=== PATIENT | male | born 1985 | race Caucasian/White ===

== ENCOUNTER → 2019-08-13 08:30 | Outpatient (BNVA) | payer SELFPAY | PROVIDERS: Family Provider Nurse Practitioner; PCP Nurse Practitioner; Visit Provider Nurse Practitioner | DX: I10 Essential (primary) hypertension (principal); F41.9 Anxiety disorder, unspecified; E66.3 Overweight | CPT/HCPCS: 80053; 80061; 81000 ==

== ENCOUNTER 2019-11-04 21:50 | Emergency (ER) | payer SELFPAY ==
--- NOTE | 2019-11-04 21:51 | CTR_ITS ---
PROCEDURE INFORMATION: Exam: CT Abdomen And Pelvis With Contrast Exam date and time: 11/04/2019 10:19 PM Age: 34 years old Clinical indication: Nausea and vomiting; Abdominal pain; Localized; Right lower quadrant (rlq); Additional info: Abd pain TECHNIQUE: Imaging protocol: Computed tomography of the abdomen and pelvis with intravenous contrast. Radiation optimization: All CT scans at this facility use at least one of these dose optimization techniques: automated exposure control; mA and/or kV adjustment per patient size (includes targeted exams where dose is matched to clinical indication); or iterative reconstruction. Contrast material: OMNI 300; Contrast volume: 95 ml; Contrast route: INTRAVENOUS (IV); COMPARISON: No relevant prior studies available. RADIATION DOSE METRICS: Total DLP (mGy-cm): 1693.42 FINDINGS: Lungs: The lung bases are clear. Mediastinal space: Possible very small hiatal hernia. There may be some mucosal/wall thickening involving the lower esophagus. This is nonspecific, but could represent evidence for esophagitis. Please correlate clinically. Liver: Unremarkable. Gallbladder and bile ducts: No definite gallbladder abnormality by CT. No biliary tree dilation. Pancreas: Unremarkable. Spleen: Unremarkable. Adrenals: Unremarkable. Kidneys and ureters: No hydronephrosis of either kidney. No visible ureteral calculus. A couple of very small, less than 5 mm likely benign cysts in each kidney. These are too small to accurately characterize by CT. Stomach and bowel: The stomach appears somewhat distended at the time of scanning. Possibility of slightly thickened mucosa/wall in the distal antrum of the stomach and proximal duodenum. This is a nonspecific appearance, and could be transient on CT, but could also represent evidence for gastritis/duodenitis or peptic ulcer disease. Please correlate clinically. There are no CT findings to strongly suggest diverticulitis. Appendix: The appendix is visualized and appears normal. Intraperitoneal space: No free air, ascites, or bowel distention. Vasculature: No evidence for abdominal aortic aneurysm. Lymph nodes: No retroperitoneal adenopathy. Bladder: Unremarkable as visualized. Reproductive: Essentially unremarkable for age. Bones/joints: No significant acute finding. Soft tissues: No significant acute finding. CT/CT abdomen pelvis w con* [id number] IMPRESSION: 1. Normal appendix. 2. Somewhat distended stomach. Possible thickened mucosa/wall in the distal stomach and proximal duodenum, see above discussion. 3. No free air or bowel distention. No evidence for bowel obstruction. 4. Possible very small hiatal hernia. Possibly some thickening of the lower esophagus, see above discussion. 5. Other findings discussed above. COMMENTS: Consistent with the [employer]'s Incidental Findings Committee white paper (J Am Samantha Radiol 2018): Any incidental renal lesion less than 1.0 cm or classified as too small to characterize, or any incidental cystic renal lesion characterized as simple-appearing, is likely benign. No follow-up imaging is recommended for these lesions per consensus recommendations based on imaging criteria. Radiation Dose CTDIVOL = (mGy): DLP = 1693.42 (mGy-cm)
[2019-11-04 21:52] VITALS: BP 160/102; PULSE 64; RESP 16; TEMP 36.5; O2SAT 96; BMI 28.5
--- NOTE | 2019-11-04 21:59 | ED_ITS ---
HPI - Abdominal Pain General: Chief Complaint: Abdominal Pain Stated Complaint: LOWER ABD PAIN Time Seen by Provider: 11/04/19 21:51 Source: patient and EMS Mode of arrival: EMS Limitations: no limitations History of Present Illness: HPI narrative: 34-year-old male states has been having right lower quadrant pain for last 5 to 6 hours. States pain is sharp in nature is worse with movement. He denies any vomiting or diarrhea. He denies any history of kidney stone. He states that the pain is worse with palpation improved with rest. MD elicited complaint: abdominal pain Onset (ago): hour(s) Location: RLQ Severity: severe Quality: stabbing Radiation: none Exacerbating factors: nothing Relieving factors: nothing Associated Symptoms: Denies chills, dysuria and fever(s) Review of Systems Const: Denies: fever(s), chills, body aches or change in appetite Eyes: Denies: blurry vision or eye discomfort ENMT: Denies: throat pain or dental pain Card: Denies: chest pain Resp: Denies: dyspnea GI: Reports: abdominal pain : Denies: dysuria Musc: Denies: neck pain or back pain Skin/Breast: Denies: rash Neuro: Denies: headache(s) Psych: Denies: depression Jimmy/Lymph: Denies: easy bruising All/Imm: Denies: urticaria PFSH ED PFSH: Medical History Anxiety Essential hypertension Surgical History History of arthroscopy of left knee Family History Other Hypertension Stroke Social History Smoking and tobacco status: former smoker Second hand smoke exposure: No Smoking risk assessment/counseling performed?: No Alcohol intake: never Desire information about alcohol rehabilitation?: No Counseling given: No Desire information about substance/drug rehabilitation?: No Counseling given: No Caregiver/support person: No Lives independently: Yes Household members: significant other Housing: House Marital status: Single Number of children: 2 service: No Current occupational status: employed 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 History of recent travel: Yes (road oiling truck driver out of state drives) Out of state: Yes Out of country: No Current gender identity: Male Physical Exam Const: COMMON NORMALS: no acute distress, patient oriented x3 and healthy appearing HENMT: COMMON NORMALS: normocephalic and atraumatic HEAD & SCALP: normocephalic and atraumatic Eye: COMMON NORMALS: Equal, round and reactive pupils present and EOMs intact bilaterally PUPIL: Yes Equal, round and reactive pupils present Neck/C-Spine: COMMON NORMALS: full ROM and supple Chest: COMMONS NORMALS: normal inspection of the chest and normal palpation of entire chest wall Resp: COMMON NORMALS: normal respiratory effort, No retractions, No use of accessory muscles and clear to auscultation bilaterally AUSCULTATION: clear to auscultation bilaterally Cardio: COMMON NORMALS: regular rate, regular rhythm and No murmurs present (Cardio) RATE: regular rate RHYTHM: regular rhythm GI: COMMON NORMALS: Normal to inspection, nondistended, normoactive bowel jayashree nds present, Soft to palpation and no masses PALPATION: Yes Soft to palpation and Yes Tenderness to palpation present (GI) Details: RLQ Extremity: COMMON NORMALS: normal to inspection and full ROM Neuro: COMMON NORMALS: patient oriented x3, moves all extremities and no focal motor deficits Psych: COMMON NORMALS: mental status grossly normal, Normal thought process present and cooperative THOUGHT PROCESS: Normal thought process present Skin: COMMON NORMALS: no rashes or lesions noted and no wounds GENERAL SKIN EXAM: no rashes or lesions noted Course Vital Signs: Vital signs: Vital Signs Temperature 97.7 F 11/04/19 21:52 Pulse Rate 78 11/04/19 23:32 Respiratory Rate 18 11/04/19 23:32 Blood Pressure 147/90 11/04/19 23:32 Pulse Oximetry 98 11/04/19 23:32 MDM - Abdominal Pain MDM Narrative: Medical decision making narrative: Rc presents here with abdominal pain likely gastritis. Patient could have peptic ulcer disease as well. He feels improved here and I will start him on Protonix and have him follow-up with surgery. Patient is to take his Protonix daily. I did give him diet modifications as well. Patient is to return if worsening. Lab Data: Labs: Lab Results 11/04/19 11/04/19 Range/Units 22:45 22:45 WBC 10.5 H (4.0-10.0) 10^3/ uL RBC 4.89 (4.1-5.3) 10^6/u L Hgb 13.9 (11.7-16.6) g/dL Hct 43.4 (42.0-52.0) % MCV 88.8 (80-94) fL MCH 28.4 (28.0-34.0) pg MCHC 32.0 (30.0-36.0) g/dL RDW 12.5 (12.1-15.1) % Plt Count 271 (130-400) 10^3/c mm MPV 10.4 (7.4-10.4) fL Neut % (Auto) 69.0 % Lymph % (Auto) 23.0 % [place] % (Auto) 5.4 % Eos % (Auto) 1.8 % Baso % (Auto) 0.5 % Neut # (Auto) 7.23 (1.8-7.7) 10^3/u L Lymph # (Auto) 2.4 (0.8-4.8) 10^3/u L [place] # (Auto) 0.6 (0.2-0.9) 10^3/u L Eos # (Auto) 0.2 (0.0-0.8) 10^3/u L Baso # (Auto) 0.1 (0.0-0.1) 10^3/u L Nucleated RBC % (a uto) 0 % Nucleated RBCs # 0.0 /100WBC Sodium 142 (136-145) mmol/L Potassium 4.3 (3.5-5.1) mmol/L Chloride 106 (98-107) mmol/L Carbon Dioxide 27 (22-29) mmol/L Anion Gap 13.3 (5-19) BUN 17 (6-20) mg/dL Creatinine 1.0 (0.7-1.2) mg/dL GFR Calculation 85.5 L (90-130) mL/min Glucose 112 (65-115) mg/dL Calculated Osmolal ity 291 (285-295) mOsm/k g Calcium 8.9 (8.5-10.5) mg/dL Total Bilirubin 0.2 (0.15-1.2) mg/dL AST 30 (0-40) U/L ALT 43 H (0-41) U/L Alkaline Phosphata se 70 (40-130) IU/L Total Protein 6.7 (6.6-8.7) g/dL Albumin 4.2 (3.5-5.2) g/dL Globulin 2.5 (1.3-4.6) g/dL Lipase 27 (13-60) U/L Imaging Data ^: CT Abd/Pel: Radiologist's impression: [address] [address] [address] Scan Report Signed Patient: Rc Tyson Unit #: [id number] : 1985 Age/Sex: 34 / M ADM Date: 11/04/19 Loc: ER Room/Bed: Attending Dr: Ordering Provider/Ordering MD: Liyah Ford MD Date of Service: 11/04/19 Procedure(s): CT abdomen pelvis w con* [id number] Accession Number(s): [id number] Report Number: [id number] PROCEDURE INFORMATION: Exam: CT Abdomen And Pelvis With Contrast Exam date and time: 11/04/2019 10:19 PM Age: 34 years old Clinical indication: Nausea and vomiting; Abdominal pain; Localized; Right lower quadrant (rlq); Additional info: Abd pain TECHNIQUE: Imaging protocol: Computed tomography of the abdomen and pelvis with intravenous contrast. Radiation optimization: All CT scans at this facility use at least one of these dose optimization techniques: automated exposure control; mA and/or kV adjustment per patient size (includes targeted exams where dose is matched to clinical indication); or iterative reconstruction. Contrast material: OMNI 300; Contrast volume: 95 ml; Contrast route: INTRAVENOUS (IV); COMPARISON: No relevant prior studies available. RADIATION DOSE METRICS: Total DLP (mGy-cm): 1693.42 FINDINGS: Lungs: The lung bases are clear. Mediastinal space: Possible very small hiatal hernia. There may be some mucosal/wall thickening involving the lower esophagus. This is nonspecific, but could represent evidence for esophagitis. Please correlate clinically. Liver: Unremarkable. Gallbladder and bile ducts: No definite gallbladder abnormality by CT. No biliary tree dilation. Pancreas: Unremarkable. Spleen: Unremarkable. Adrenals: Unremarkable. Kidneys and ureters: No hydronephrosis of either kidney. No visible ureteral calculus. A couple of very small, less than 5 mm likely benign cysts in each kidney. These are too small to accurately characterize by CT. Stomach and bowel: The stomach appears somewhat distended at the time of scanning. Possibility of slightly thickened mucosa/wall in the distal antrum of the stomach and proximal duodenum. This is a nonspecific appearance, and could be transient on CT, but could also represent evidence for gastritis/duodenitis or peptic ulcer disease. Please correlate clinically. There are no CT findings to strongly suggest diverticulitis. Appendix: The appendix is visualized and appears normal. Intraperitoneal space: No free air, ascites, or bowel distention. Vasculature: No evidence for abdominal aortic aneurysm. Lymph nodes: No retroperitoneal adenopathy. Bladder: Unremarkable as visualized. Reproductive: Essentially unremarkable for age. Bones/joints: No significant acute finding. Soft tissues: No significant acute finding. CT/CT abdomen pelvis w con* [id number] IMPRESSION: 1. Normal appendix. 2. Somewhat distended stomach. Possible thickened mucosa/wall in the distal stomach and proximal duodenum, see above discussion. 3. No free air or bowel distention. No evidence for bowel obstruction. 4. Possible very small hiatal hernia. Possibly some thickening of the lower esophagus, see above discussion. 5. Other findings discussed above. Discharge Plan Discharge Patient Disposition: Home Clinical Impression: Abdominal pain Qualifiers: Abdominal location: generalized Qualified Code(s): R10.84 - Generalized abdominal pain Condition: Stable Prescriptions: New Protonix 40 mg tablet,delayed release (DR/EC) 40 mg PO DAILY Qty: 60 RF: 1 No Action atenolol 25 mg tablet 25 mg PO BID Qty: 180 RF: 1 citalopram 20 mg tablet 20 mg PO DAILY Qty: 90 RF: 1 Discharge Orders: Discharge Order (Routine); Ordered 11/05/19 Ordered By: Liyah Ford Referrals: Rodney Liu MD [Physician] - 4-7 days Nunu Arredondo FNP-C [Primary Care Provider] - 1-3 days Discharge Diet: Advance as tolerated Discharge Activity: Resume usual activity Patient Instructions: Abdominal Pain (ED) Coding Level of Care Code ED Insurance Attorney for Chg Fwd Exam Comprehensive
[2019-11-04 22:27] VITALS: RESP 20; O2SAT 96
[2019-11-04] MEDS: morphine 4 mg/mL SDV 1 mL IVP (22:27)
[2019-11-04] MEDS: ondansetron 2 mg/ML SDV 2 mL 4 MG IVP (22:27)
[2019-11-04 22:32] VITALS: BP 145/87; PULSE 68; RESP 20; O2SAT 98
[2019-11-04] MEDS: iohexol 300 mg/mL 100 mL Btl IV (22:58)
[2019-11-04 23:00] LABS: Basophils # 0.1 10^3/uL (0.0-0.1); Basophils % 0.5 %; Eosinophils # 0.2 10^3/uL (0.0-0.8); Eosinophils % 1.8 %; Hematocrit 43.4 % (42.0-52.0); Hemoglobin 13.9 g/dL (11.7-16.6); Lymphocytes # 2.4 10^3/uL (0.8-4.8); Mean Corpuscular Hemoglobin 28.4 pg (28.0-34.0); Mean Corpuscular Volume 88.8 fL (80-94); Mean Platelet Volume 10.4 fL (7.4-10.4); Monocytes # 0.6 10^3/uL (0.2-0.9); Monocytes % 5.4 %; Neutrophils # 7.23 10^3/uL (1.8-7.7); Nucleated Red Blood Cells % 0 %; Platelet Count 271 10^3/cmm (130-400); Red Blood Count 4.89 10^6/uL (4.1-5.3); Red Cell Distribution Width 12.5 % (12.1-15.1); White Blood Count 10.5 10^3/uL (4.0-10.0)
[2019-11-04 23:32] VITALS: BP 147/90; PULSE 78; RESP 18; O2SAT 98
[2019-11-04] MEDS: lidocaine 2% viscous 15 ML, aluminum-mag hydrox-simethicon 30 ML, sucralfate oral liq 1 GM PO (23:47)
[2019-11-04 23:49] LABS: Alanine Aminotransferase 43 U/L (0-41); Albumin Level 4.2 g/dL (3.5-5.2); Alkaline Phosphatase 70 IU/L (40-130); Anion Gap 13.3 (5-19); Aspartate Amino Transferase 30 U/L (0-40); Blood Urea Nitrogen 17 mg/dL (6-20); Calcium 8.9 mg/dL (8.5-10.5); Carbon Dioxide 27 mmol/L (22-29); Chloride 106 mmol/L (98-107); Globulin 2.5 g/dL (1.3-4.6); Glomerular Filtration Rate 85.5 mL/min (90-130); Glucose 112 mg/dL (65-115); Lipase 27 U/L (13-60); Osmolality Calculated 291 mOsm/kg (285-295); Potassium 4.3 mmol/L (3.5-5.1); Sodium 142 mmol/L (136-145); Total Bilirubin 0.2 mg/dL (0.15-1.2); Total Protein 6.7 g/dL (6.6-8.7)
[2019-11-05] VITALS: BP 137/87; PULSE 68; RESP 18; O2SAT 95
[2019-11-05 00:28] VITALS: BP 137/87; PULSE 72; RESP 18; O2SAT 96
--- NOTE | 2019-11-10 09:22 | DCPLANNER ---
Addendum entered by Earlene Gutiérrez 11/10/19 12:49: Patient does not want to follow up with Dr. Liu, patient wants to follow up with Dr. Paulson. Patient has a follow up appointment scheduled for Sunday, November 17, 2019 at 1:[address] [facility] at [facility]. Clinic will call patient with appointment information. Original Note: wind energy project manager had message to schedule a follow up appointment for patient with Dr. Liu. wind energy project manager called the office of Dr. Liu, spoke with Shayy, faxed patients information to clinic. A follow up appointment was scheduled for Sunday, December 01, 2019 at 10:30. Clinic will call patient with appointment information.
--- NOTE | 2019-12-03 08:09 | DCPLANNER ---
Patient had a follow up appointment scheduled for 11.17.19 with [facility] - patient did attend the appointment.
== END 2019-11-05 00:30 | disposition home or self-care (01) ==
PROVIDERS: Emergency Provider Emergency Medicine; PCP Nurse Practitioner
DX: R10.84 Generalized abdominal pain (principal); I10 Essential (primary) hypertension; Z87.891 Personal history of nicotine dependence
CPT/HCPCS: 12345; 74177; 80053; 83690; 85025; 96374; 96375; 99282; 99283; J2270; J2405; Q9967

== ENCOUNTER 2019-11-30 09:27 | Outpatient (CLI) | payer SELFPAY ==
--- NOTE | 2019-11-30 10:00 | NM_ITS ---
WS: [id number] NUCLEAR MEDICINE HIDA SCAN CLINICAL INFORMATION: abdominal pain TECHNIQUE: Following intravenous administration of 8.0 mCi of technetium 99m mebrofenin, images of th e abdomen were obtained over the course of 60 minutes. Next, gallbladder ejection fraction was determ ined by obtaining preprandial and one-hour postprandial images of the gallbladder following oral meg stion of Ensure. COMPARISON: None. FINDINGS: Normal hepatic uptake at 5 minutes. Gallbladder is visualized by 10 minutes. No evidence of acute cho lecystitis. Small bowel and common bile duct are visualized. No evidence of choledocholithiasis. Gallbladder ejection fraction 48% within normal limits. No evidence of chronic cholecystitis. NM/NM hepatobiliary w phar* [id number] IMPRESSION: 1. No evidence of acute or chronic cholecystitis. 2. Gallbladder ejection fraction 48% within normal limits.
== END 2019-11-30 09:28 | disposition home or self-care (01) ==
LOC: NM 09:29
PROVIDERS: PCP Nurse Practitioner; Visit Provider Surgery
DX: R10.9 Unspecified abdominal pain (principal)
CPT/HCPCS: 78227; A9537

== ENCOUNTER → 2019-12-22 11:29 | Outpatient (BNVA) | payer SELFPAY | PROVIDERS: PCP Nurse Practitioner; Visit Provider Nurse Practitioner | DX: Z11.59 Encounter for screening for other viral diseases (principal) | CPT/HCPCS: 87635 ==

== ENCOUNTER 2020-05-01 19:16 | Emergency (ER) | payer OTHER, SELFPAY ==
[2020-05-01 19:21] VITALS: BP 149/92; PULSE 89; RESP 18; TEMP 36.3; O2SAT 97; BMI 30.3
--- NOTE | 2020-05-01 19:36 | ECG_ITS ---
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 [email or web address]
--- NOTE | 2020-05-01 19:36 | XR_ITS ---
WS: [id number] Exam: XR chest 1V portable [id number] Date/Time of Exam: 05/01/2020 7:36 PM Reason For Exam: chest pain The lungs are clear and fully expanded. Normal cardiomediastinal structures. Bony structures are inta ct. There may be a left-sided cervical rib at C7. XR/XR chest 1V portable [id number] IMPRESSION: 1. No acute cardiopulmonary process noted. 2. There may be a cervical rib at C7 on the left.
[2020-05-01 19:37] VITALS: BP 136/89; PULSE 89; RESP 19; O2SAT 96
[2020-05-01 19:41] LABS: Basophils # 0.1 10^3/uL (0.0-0.1); Basophils % 0.6 %; Eosinophils # 0.2 10^3/uL (0.0-0.8); Eosinophils % 1.6 %; Hematocrit 45.3 % (42.0-52.0); Hemoglobin 14.8 g/dL (11.7-16.6); Lymphocytes # 3.3 10^3/uL (0.8-4.8); Lymphocytes % 32.3 %; Mean Corpuscular HGB Conc 32.7 g/dL (30.0-36.0); Mean Corpuscular Hemoglobin 28.7 pg (28.0-34.0); Mean Corpuscular Volume 87.8 fL (80-94); Mean Platelet Volume 10.3 fL (7.4-10.4); Monocytes # 0.7 10^3/uL (0.2-0.9); Monocytes % 6.9 %; Neutrophils # 5.94 10^3/uL (1.8-7.7); Neutrophils % 58.4 %; Nucleated Red Blood Cells % 0 %; Platelet Count 313 10^3/cmm (130-400); Red Blood Count 5.16 10^6/uL (4.1-5.3); Red Cell Distribution Width 13.4 % (12.1-15.1); White Blood Count 10.2 10^3/uL (4.0-10.0)
--- NOTE | 2020-05-01 19:44 | ED_ITS ---
HPI - Chest Pain General: Chief Complaint: Shortness of Breath/Dyspnea Stated Complaint: SOB Time Seen by Provider: 05/01/20 19:22 History of Present Illness: HPI narrative: The patient is a 34-year-old male with past medical history anxiety who comes to the ER complaining of approximately 1 hour of chest pain and shortness of breath. Onset: during rest and during exertion Pain location: substernal Pain radiation: none Quality: sharp Relieving factors: nothing Exacerbating factors: nothing Associated symptoms: Reports no associated symptoms and dyspnea; Deny abdominal pain or palpitations Review of Systems General: Reports: 10 or more systems reviewed and unremarkable except in HPI and below Const: Denies: fatigue Eyes: Denies: change in vision, blurry vision or eye redness ENMT: Denies: throat pain, swelling of lips/tongue, ear or mastoid pain or nasal congestion Card: Reports: chest pain; Denies: palpitations, irregular heart rhythm, edema, dyspnea on exertion or orthopnea Resp: Reports: dyspnea; Denies: productive cough or non-productive cough GI: Denies: abdominal pain, diarrhea or GI cramping : Denies: flank pain, urinary frequency or urinary urgency Musc: Denies: neck pain, back pain, extremity pain, joint pain, joint redness, limited range of motion or muscle weakness Skin/Breast: Denies: rash, pruritus, erythema, skin pain or skin tenderness Neuro: Denies: headache(s), numbness in extremities, weakness in extremities, sensory changes, difficulty walking, dizziness, confusion or Slurred speech present Psych: Denies: anxiety or depression Endo: Denies: polyuria All/Imm: Denies: urticaria, throat swelling or tongue swelling PFSH ED PFSH: Medical History (Updated 05/01/20 @ 23:38 by Reinier Nuñez MD) Anxiety Essential hypertension Surgical History History of arthroscopy of left knee Family History Other Hypertension Stroke Social History Smoking and tobacco status: former smoker Second hand smoke exposure: No Smoking risk assessment/counseling performed?: No Alcohol intake: never Desire information about alcohol rehabilitation?: No Counseling given: No Desire information about substance/drug rehabilitation?: No Counseling given: No Caregiver/support person: No Lives independently: Yes Household members: significant other Housing: House Marital status: Single Number of children: 2 service: No Current occupational status: employed 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 History of recent travel: Yes (mechanic industrial truck out of state drives) Out of state: Yes Out of country: No Current gender identity: Male Physical Exam Const: COMMON NORMALS: no acute distress, average body habitus, patient oriented x3, no limitations, healthy appearing, alert and well nourished GENERAL APPEARANCE: cooperative, comfortable, well kempt and well developed ORIENTATION/CONSCIOUSNESS: Yes awake, Yes oriented to person, Yes oriented to place and Yes oriented to time HENMT: COMMON NORMALS: normocephalic, external ears normal and Normal external nose present HEAD & SCALP: normal to inspection and normocephalic NOSE: Normal external nose present EXTERNAL EAR: Yes external ears normal MOUTH: Normal oral and palatal mucosa present THROAT: posterior oropharynx normal Eye: COMMON NORMALS: Equal, round and reactive pupils present and EOMs intact bilaterally GENERAL EYE: appearance normal, both eyes and all related structures PUPIL: Yes Equal, round and reactive pupils present Neck/C-Spine: COMMON NORMALS: full ROM, no lymphadenopathy, no meningeal signs and no JVD GENERAL: Yes normal visual inspection Lymph: LYMPHATIC: no lymphadenopathy noted Chest: COMMONS NORMALS: normal inspection of the chest and normal palpation of entire chest wall Resp: COMMON NORMALS: normal respiratory effort, No retractions, No use of accessory muscles, clear to auscultation bilaterally and percussion normal EFFORT & INSPECTION: Yes able to speak in complete sentences AUSCULTATION: clear to auscultation bilaterally PERCUSSION: percussion normal Cardio: COMMON NORMALS: no JVD, regular rate, regular rhythm, S1 normal heart sound present, S2 normal heart sound present and Peripheral pulses 2+ throughout RATE: regular rate RHYTHM: regular rhythm HEART SOUNDS: S1 normal heart sound present and S2 normal heart sound present PERIPHERAL PULSES: Peripheral pulses 2+ throughout GI: COMMON NORMALS: Normal to inspection, nondistended, normoactive bowel sounds present, Soft to palpation, non-tender and no masses INSPECTION: Yes normal to inspection PALPATION: Yes Soft to palpation : COMMON NORMALS: Yes no CVA tenderness BLADDER/KIDNEY EXAM: Yes no CVA tenderness Back/Pelvis: COMMON NORMALS: no CVA tenderness, thoracic and lumbar spine normal to inspection, no thoracic nor lumbar tenderness and thoraco-lumbar ROM normal Extremity: COMMON NORMALS: normal to inspection, full ROM, capillary refill normal, no joint enlargement and no pedal edema GENERAL: Yes normal exam except as noted Neuro: COMMON NORMALS: patient oriented x3, CN's II-XII intact bilaterally, moves all extremities, no focal motor deficits, no sensory deficits noted and gait normal SENSORIUM/ORIENTATION: Yes alert, Yes oriented to person, Yes oriented to place and Yes oriented to time MENINGEAL SIGNS: Yes no meningeal signs Psych: COMMON NORMALS: mental status grossly normal, Normal thought process present, cooperative, normal affect and speech normal APPEARANCE: Yes well kempt ATTITUDE: Yes calm SPEECH: Yes normal speech THOUGHT PROCESS: Normal thought process present Skin: COMMON NORMALS: no rashes or lesions noted GENERAL SKIN EXAM: no rashes or lesions noted Course Vital Signs: Vital signs: Vital Signs Temperature 97.3 F L 05/01/20 19: Pulse Rate 78 05/01/20 23:30 Respiratory Rate 23 H 05/01/20 23:30 Blood Pressure 134/81 05/01/20 23:30 Pulse Oximetry 94 05/01/20 23:30 MDM - Chest Pain MDM Narrative: Medical decision making narrative: The cause of his chest pain is unclear but likely noncardiac. Troponin and EKG were both normal. He is stable for discharge. Follow-up with primary care physician in 2 to 3 days. ER with worsening symptoms Lab Data: Labs: Lab Results 05/01/20 05/01/20 05/01/20 Range/Units 19:35 19:35 19:35 WBC 10.2 H (4.0-10.0) 10^3/ uL RBC 5.16 (4.1-5.3) 10^6/u L Hgb 14.8 (11.7-16.6) g/dL Hct 45.3 (42.0-52.0) % MCV 87.8 (80-94) fL MCH 28.7 (28.0-34.0) pg MCHC 32.7 (30.0-36.0) g/dL RDW 13.4 (12.1-15.1) % Plt Count 313 (130-400) 10^3/c mm MPV 10.3 (7.4-10.4) fL Neut % (Auto) 58.4 % Lymph % (Auto) 32.3 % Forrest % (Auto) 6.9 % Eos % (Auto) 1.6 % Baso % (Auto) 0.6 % Neut # (Auto) 5.94 (1.8-7.7) 10^3/u L Lymph # (Auto) 3.3 (0.8-4.8) 10^3/u L Forrest # (Auto) 0.7 (0.2-0.9) 10^3/u L Eos # (Auto) 0.2 (0.0-0.8) 10^3/u L Baso # (Auto) 0.1 (0.0-0.1) 10^3/u L Nucleated RBC % (a uto) 0 % Nucleated RBCs # 0.0 /100WBC D-Dimer 0.29 (0-0.59) ug/mIFE U Sodium 139 (136-145) mmol/L Potassium 4.5 (3.5-5.1) mmol/L Chloride 103 (98-107) mmol/L Carbon Dioxide 27 (22-29) mmol/L Anion Gap 13.5 (5-19) BUN 13 (6-20) mg/dL Creatinine 0.8 (0.7-1.2) mg/dL GFR Calculation 110.7 (90-130) mL/min Glucose 85 (65-115) mg/dL Calculated Osmolal ity 287 (285-295) mOsm/k g Calcium 10.9 H (8.5-10.5) mg/dL Total Bilirubin 0.2 (0.15-1.2) mg/dL AST 17 (0-40) U/L ALT 20 (0-41) U/L Alkaline Phosphata se 84 (40-130) IU/L Troponin T Baselin e (0-15) ng/L Troponin T 120 Min solomon (0-15) ng/L Delta Troponin T (0-10) ABS# Total Protein 7.4 (6.6-8.7) g/dL Albumin 4.7 (3.5-5.2) g/dL Globulin 2.7 (1.3-4.6) g/dL 05/01/20 05/01/20 Range/Units 19:35 22:26 WBC (4.0-10.0) 10^3/ uL RBC (4.1-5.3) 10^6/u L Hgb (11.7-16.6) g/dL Hct (42.0-52.0) % MCV (80-94) fL MCH (28.0-34.0) pg MCHC (30.0-36.0) g/dL RDW (12.1-15.1) % Plt Count (130-400) 10^3/c mm MPV (7.4-10.4) fL Neut % (Auto) % Lymph % (Auto) % Forrest % (Auto) % Eos % (Auto) % Baso % (Auto) % Neut # (Auto) (1.8-7.7) 10^3/u L Lymph # (Auto) (0.8-4.8) 10^3/u L Forrest # (Auto) (0.2-0.9) 10^3/u L Eos # (Auto) (0.0-0.8) 10^3/u L Baso # (Auto) (0.0-0.1) 10^3/u L Nucleated RBC % (a uto) % Nucleated RBCs # /100WBC D-Dimer (0-0.59) ug/mIFE U Sodium (136-145) mmol/L Potassium (3.5-5.1) mmol/L Chloride (98-107) mmol/L Carbon Dioxide (22-29) mmol/L Anion Gap (5-19) BUN (6-20) mg/dL Creatinine (0.7-1.2) mg/dL GFR Calculation (90-130) mL/min Glucose (65-115) mg/dL Calculated Osmolal ity (285-295) mOsm/k g Calcium (8.5-10.5) mg/dL Total Bilirubin (0.15-1.2) mg/dL AST (0-40) U/L ALT (0-41) U/L Alkaline Phosphata se (40-130) IU/L Troponin T Baselin e 6 (0-15) ng/L Troponin T 120 Min solomon 6.00 (0-15) ng/L Delta Troponin T 0 (0-10) ABS# Total Protein (6.6-8.7) g/dL Albumin (3.5-5.2) g/dL Globulin (1.3-4.6) g/dL Discharge Plan Discharge Patient Disposition: Home Clinical Impression: Atypical chest pain Condition: Stable Prescriptions: No Action losartan 50 mg tablet 50 mg PO DAILY Qty: 90 RF: 0 atenolol 25 mg tablet 25 mg PO BID Qty: 180 RF: 1 citalopram 20 mg tablet 20 mg PO DAILY Qty: 90 RF: 1 pantoprazole [Protonix] 40 mg tablet,delayed release (DR/EC) 40 mg PO DAILY Qty: 60 RF: 1 Discharge Orders: Discharge ED (Routine); Ordered 05/01/20 Ordered By: Reinier Nuñez Referrals: Nunu Arredondo, BRADYC [Primary Care Provider] - Discharge Diet: Advance as tolerated Discharge Activity: Resume usual activity Patient Instructions: Chest Pain (ED), Opioid Safety Activity Restrictions/Additional Instructions: The cause of your chest pain is unclear but it is unlikely your heart. Please follow-up with your primary care physician in a few days to monitor improvement of your symptoms and return to the ER with worsening symptoms. Coding Level of Care Code ED Lead Supply Worker for Reinaldo Fwjohn Exam Comprehensive
[2020-05-01 20:00] LABS: D Dimer 0.29 ug/mIFEU (0-0.59)
[2020-05-01 20:07] LABS: Alanine Aminotransferase 20 U/L (0-41); Albumin Level 4.7 g/dL (3.5-5.2); Alkaline Phosphatase 84 IU/L (40-130); Anion Gap 13.5 (5-19); Aspartate Amino Transferase 17 U/L (0-40); Blood Urea Nitrogen 13 mg/dL (6-20); Calcium 10.9 mg/dL (8.5-10.5); Carbon Dioxide 27 mmol/L (22-29); Chloride 103 mmol/L (98-107); Globulin 2.7 g/dL (1.3-4.6); Glomerular Filtration Rate 110.7 mL/min (90-130); Glucose 85 mg/dL (65-115); Osmolality Calculated 287 mOsm/kg (285-295); Potassium 4.5 mmol/L (3.5-5.1); Sodium 139 mmol/L (136-145); Total Bilirubin 0.2 mg/dL (0.15-1.2); Total Protein 7.4 g/dL (6.6-8.7)
[2020-05-01 20:09] LABS: Troponin(5th) Baseline 6 ng/L (0-15)
[2020-05-01 21:08] VITALS: BP 121/87; PULSE 80; RESP 18; O2SAT 97
[2020-05-01] MEDS: lidocaine 2% viscous 15 ML, aluminum-mag hydrox-simethicon 30 ML, sucralfate oral liq 1 GM PO (21:14)
[2020-05-01] MEDS: sodium chloride 0.9% 1,000 ML 999 ML IV (21:14)
[2020-05-01] MEDS: ketorolac 30 mg/mL INJ 15 MG IVP (21:14)
[2020-05-01 21:15] VITALS: BP 121/87; PULSE 85; RESP 21; O2SAT 98
--- NOTE | 2020-05-01 21:36 | ECG_ITS ---
[facility] Test Date: 2020-05-01 Pat Name: Rc Tyson Department: Room: Gender: Male Hospital Social Worker: : 1985 Requested By: Reinier Nuñez Order Number: [id number] Garcia MD: Mary Krause M.D. Measurements Intervals [place] Rate: 79 P: 27 MA: 166 QRS: 4 QRSD: 83 T: 13 QT: 337 QTc: 387 Interpretive Statements SINUS RHYTHM MODERATE VOLTAGE CRITERIA FOR LVH, CONSIDER NORMAL VARIANT [MEETS CRITERIA IN ONE OF: R(aVL), S(V1), R(V5), R(V5/V6)+S(V1)] Compared to ECG 05/01/2020 19:28:51 No significant changes Electronically Signed On 05-03-2020 6:15:17 MOBILE GAME ENGINEER by Mary Krause M.D. [email or web address]
[2020-05-01 22:18] VITALS: BP 141/87; PULSE 77; RESP 18; O2SAT 96
[2020-05-01] MEDS: LORazepam 2 mg/mL INJ 1 mL 0.5 MG IVP (22:19)
[2020-05-01 22:52] LABS: Troponin 5 2HR Delta 0 ABS# (0-10)
[2020-05-01 23:30] VITALS: BP 134/81; PULSE 78; RESP 23; O2SAT 94
[2020-05-02 00:06] VITALS: BP 128/72; PULSE 78; RESP 22; TEMP 36.6; O2SAT 98
== END 2020-05-02 00:06 | disposition home or self-care (01) ==
PROVIDERS: Emergency Provider Family Medicine; PCP Nurse Practitioner
DX: R07.89 Other chest pain (principal); I10 Essential (primary) hypertension; Z87.891 Personal history of nicotine dependence
CPT/HCPCS: 71045; 80053; 84484; 85025; 85378; 93005; 96361; 96374; 96375; 99284; J1885; J2060; J7030

== ENCOUNTER → 2020-05-02 10:04 | Outpatient (BNVA) | payer OTHER, SELFPAY | PROVIDERS: PCP Nurse Practitioner; Visit Provider Nurse Practitioner Family | DX: J02.9 Acute pharyngitis, unspecified (principal); R13.10 Dysphagia, unspecified; K21.00 Gastro-esophageal reflux disease with esophagitis, without bleeding | CPT/HCPCS: 87071; 87880 ==

== ENCOUNTER → 2020-05-23 15:45 | Outpatient (BNVA) | payer OTHER, SELFPAY | PROVIDERS: PCP Nurse Practitioner; Visit Provider Family Medicine | DX: M25.532 Pain in left wrist (principal) | CPT/HCPCS: 73110 ==

== ENCOUNTER 2020-05-24 14:09 | Outpatient (CLI) | payer OTHER, SELFPAY | END 2020-05-24 14:10 | disposition home or self-care (01) | LOC: SPT 14:10 | PROVIDERS: PCP Nurse Practitioner; Visit Provider Orthopaedic Surgery | DX: Z46.89 Encounter for fitting and adjustment of other specified devices (principal); S52.592D Other fractures of lower end of left radius, subsequent encounter for closed fracture with routine healing; X58.XXXD Exposure to other specified factors, subsequent encounter | CPT/HCPCS: 97760; L3982 ==

== ENCOUNTER → 2020-06-21 08:23 | Outpatient (BNVA) | payer OTHER, SELFPAY | PROVIDERS: PCP Nurse Practitioner; Visit Provider Orthopaedic Surgery | DX: S52.502D Unspecified fracture of the lower end of left radius, subsequent encounter for closed fracture with routine healing; Z98.890 Other specified postprocedural states; X58.XXXD Exposure to other specified factors, subsequent encounter | CPT/HCPCS: 73110 ==

== ENCOUNTER → 2020-07-12 14:03 | Outpatient (BNVA) | payer OTHER, SELFPAY | PROVIDERS: PCP Nurse Practitioner; Visit Provider Orthopaedic Surgery | DX: S52.502A Unspecified fracture of the lower end of left radius, initial encounter for closed fracture (principal); S63.8X2A Sprain of other part of left wrist and hand, initial encounter; X58.XXXA Exposure to other specified factors, initial encounter | CPT/HCPCS: 73110 ==

== ENCOUNTER 2021-01-26 06:00 | Outpatient (RCR) | payer OTHER, SELFPAY | END 2021-02-07 23:59 | disposition home or self-care (01) | LOC: AOT 06:00 | PROVIDERS: PCP Nurse Practitioner; Referring Provider Orthopaedic Surgery Hand Surgery; Visit Provider Orthopaedic Surgery Hand Surgery | DX: S52.512 Displaced fracture of left radial styloid process (principal); S63.8X2D Sprain of other part of left wrist and hand, subsequent encounter | CPT/HCPCS: 97110; 97140; 97165 ==

== ENCOUNTER → 2021-04-20 15:39 | Outpatient (BNVA) | payer OTHER, SELFPAY | PROVIDERS: PCP Nurse Practitioner; Visit Provider Nurse Practitioner Family | DX: J02.9 Acute pharyngitis, unspecified (principal); R50.9 Fever, unspecified | CPT/HCPCS: 87071; 87635; 87880 ==

== ENCOUNTER → 2021-04-28 11:16 | Outpatient (BNVA) | payer SELFPAY | PROVIDERS: PCP Nurse Practitioner; Visit Provider Nurse Practitioner Family | DX: R05.9 Cough, unspecified (principal); R06.02 Shortness of breath; I51.7 Cardiomegaly | CPT/HCPCS: 71046; 80053; 85025; 87400 ==

== ENCOUNTER → 2021-05-08 15:10 | Outpatient (BNVA) | payer SELFPAY | PROVIDERS: PCP Nurse Practitioner; Visit Provider Nurse Practitioner Family | DX: R73.09 Other abnormal glucose (principal) | CPT/HCPCS: 83036 ==

== ENCOUNTER 2021-05-31 10:23 | Outpatient (CLI) | payer SELFPAY ==
--- NOTE | 2021-05-31 11:00 | USCV_ITS ---
Rc Tyson Age: 35 Gender: M : 1985 Exam Date: 05/31/2021 11:22 Ordering Phys: Alyssa Garrett STUDIO PRODUCER-Steff Technologist: ALICE Exam Location: [facility] [place] Indication: chest pain BP: 123 / 87 HR: 62 Rhythm: Sinus Technical Quality: Adequate MEASUREMENTS (Male / Female) Normal Values 2D ECHO LV Diastolic Diameter PLAX 4.5 cm 4.2 - 5.9 / 3.9 - 5.3 cm LV Systolic Diameter PLAX 2.8 cm IVS Diastolic Thickness 0.9 cm 0.6 - 1.0 / 0.6 - 0.9 cm IVS Systolic Thickness 1.7 cm LVPW Diastolic Thickness 1.1 cm 0.6 - 1.0 / 0.6 - 0.9 cm LVPW Systolic Thickness 1.7 cm LVOT Diameter 2.0 cm LV Ejection Fraction 2D Teich 67.3 % LV Ejection Fraction MOD 2C 52.5 % LV Ejection Fraction 2C AL 53.0 % LA Diameter 3.4 cm LA Width 2.8 cm LA Height 4.6 cm RA Width 2.6 cm RA Height 4.2 cm Aorta at Sinotubular Diameter 2.4 cm M-MODE Aortic Annulus Diameter 3.2 cm LA Ao Ratio MM 1.1 MV E Point Septal Separation 0.3 cm DOPPLER AV Peak Velocity 121.0 cm/s LVOT Peak Velocity 81.0 cm/s AV Area Cont Eq vti 2.3 cm squared AV Area Cont Eq pk 2.2 cm squared MV Area PHT 5.0 cm squared Mitral E to A Ratio 1.2 MV E' Velocity 42.5 cm/s Mitral E to MV E' Ratio 6.1 Mitral E to LV E' Lateral Ratio 6.5 Mitral E to LV E' Septal Ratio 5.8 TR Peak Velocity 208.0 cm/s TR Peak Gradient 17.3 mmHg TV Peak E Velocity 48.0 cm/s Right Atrial Pressure 3.0 mmHg Pulmonary Artery Systolic Pressu 20.3 mmHg PV Peak Velocity 126.0 cm/s RV Acceleration Time 0.1 s RV Ejection Time 0.3 s RV AcT/ET 0.4 FINDINGS Left Ventricle Normal left ventricular size. LV systolic function is normal with EF of 55-60%. No regional wall motion abnormalities. Normal diastolic filling pattern. Right Ventricle The right ventricle is normal in size and function. Right Atrium The right atrium is normal in size. Left Atrium The left atrium is normal in size. Mitral Valve Structurally normal mitral valve without significant stenosis or prolapse. There is no mitral regurgitation. Aortic Valve Structurally normal aortic valve without significant sclerosis or stenosis. There is no aortic regurgitation. Tricuspid Valve Structurally normal tricuspid valve without significant stenosis. Mild tricuspid regurgitation. Insufficient TR jet to calculate RVSP. Pulmonic Valve Structurally normal pulmonic valve without significant stenosis. There is Trace pulmonic regurgitation. Pericardium Normal pericardium without effusion. Aorta Normal ascending aorta dimension. CONCLUSIONS LV systolic function is normal with EF of 55-60% Diastolic function is normal Mild tricuspid regurgitation and trace pulmonic regurgitation noted No comparison studies are available Yakov Bernstein MD (Electronically Signed) Final Date: 09 June 2021 11:48 S
== END 2021-05-31 10:24 | disposition home or self-care (01) ==
LOC: RAD 10:24
PROVIDERS: PCP Nurse Practitioner; Visit Provider Nurse Practitioner Family
DX: R06.02 Shortness of breath (principal); R07.9 Chest pain, unspecified; I07.1 Rheumatic tricuspid insufficiency
CPT/HCPCS: 93306

== ENCOUNTER 2021-08-26 20:50 | Emergency (ER) | payer SELFPAY ==
[2021-08-26 20:53] VITALS: BP 176/101; PULSE 73; RESP 18; TEMP 36.8; O2SAT 99
--- NOTE | 2021-08-26 20:59 | XRR_ITS ---
PROCEDURE INFORMATION: Exam: XR Left Hand Exam date and time: 08/26/2021 9:19 PM Age: 36 years old Clinical indication: Injury or trauma; Fall; Blunt trauma (contusions or hematomas); Hand; Left TECHNIQUE: Imaging protocol: Radiologic exam of the Left hand. Views: 3 or more views. COMPARISON: No relevant prior studies available. FINDINGS: Bones/joints: Widened scapholunate interval. Displaced bone fragment on the dorsal side of the wrist. Normal bone mineralization. No arthritis. Soft tissues: Soft tissue swelling pronounced over the dorsal side. XR/XR hand LT min 3V* [id number] IMPRESSION: 1. Positive for triquetrum fracture. 2. Possible scapholunate dissociation.
--- NOTE | 2021-08-26 20:59 | XRR_ITS ---
PROCEDURE INFORMATION: Exam: XR Left Wrist Exam date and time: 08/26/2021 9:24 PM Age: 36 years old Clinical indication: Injury or trauma; Fall; Blunt trauma (contusions or hematomas); Wrist; Left TECHNIQUE: Imaging protocol: Radiologic exam of the Left wrist. Views: 3 or more views. COMPARISON: CR (UP EXM, ) 08/26/2021 9:19 PM FINDINGS: Bones/joints: Displaced bone fragment suspicious for triquetrum fracture. No evidence of carpal bone dislocation. Mild widening of scapholunate interval. Soft tissues: Diffuse soft tissue edema over the dorsal side of the wrist. XR/XR wrist LT min 3V* [id number] IMPRESSION: 1. Triquetrum fracture suspected. 2. Cannot exclude scapholunate disassociation.
--- NOTE | 2021-08-27 00:48 | W.ED.UPPEXIN ---
HPI - Extremity Injury (Upper) General: Chief Complaint: Extremity Injury, Upper Stated Complaint: Left hand injury/lac Time Seen by Provider: 08/26/21 22:27 Source: patient and family Mode of arrival: ambulatory Limitations: no limitations History of Present Illness: Patient is a 36-year-old male who presents to ED today for evaluation following a left hand injury. Patient tells me several hours ago he got his hand caught under a trailer [place]. Patient states approximately last year he had a left distal radial fracture to that wrist. He was also diagnosed with scapholunate instability and referred to a hand surgeon in [place]. He states he did have ligamentous surgery. Patient currently is complaining of pain to the dorsum of his hand. He denies numbness, tingling, loss of sensation, color/temperature changes. MD complaint: injury to: left and hand Onset (ago): hour(s) Other Extremity Injury: Left: hand Other injuries: none Place: home Severity: moderate Relieving factors: immobilization Exacerbating factors: movement of extremity Context: crush Associated symptoms: Reports no associated symptoms; Denies weakness in extremities Review of Systems Musc: Reports: extremity pain and extremity swelling; Denies: joint redness Neuro: Denies: numbness in extremities, weakness in extremities or sensory changes PFSH ED PFSH: Medical History Anxiety Essential hypertension Surgical History History of arthroscopy of left knee Family History Other Hypertension Stroke Social History Smoking and tobacco status: current every day smoker cigarettes Packs smoked per day: 1 Second hand smoke exposure: No Smoking risk assessment/counseling performed?: No Alcohol intake: never Desire information about alcohol rehabilitation?: No Counseling given: No Desire information about substance/drug rehabilitation?: No Counseling given: No Caregiver/support person: No Lives independently: Yes Household members: significant other Housing: House Marital status: Single Number of children: 2 service: No Current occupational status: employed 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 History of recent travel: Yes (food truck caterer out of state drives) Out of state: Yes Out of country: No Current gender identity: Male Physical Exam Const: COMMON NORMALS: no acute distress, patient oriented x3, no limitations and alert GENERAL APPEARANCE: cooperative Extremity: COMMON NORMALS: capillary refill normal GENERAL: Yes normal exam except as noted LEFT UPPER EXTREMITY: Yes hand & digits OTHER: pt has pain and mild swelling throughout dorsum of L hand; there are a few minor abrasions but no lacerations/puncture mejia; digits all with normal cap refill; sensory intact Neuro: COMMON NORMALS: patient oriented x3, moves all extremities, no focal motor deficits and no sensory deficits noted SENSORIUM/ORIENTATION: Yes alert Course Vital Signs: Vital signs: Vital Signs Temperature 98.2 F 08/26/21 20:53 Pulse Rate 73 08/26/21 20:53 Respiratory Rate 18 08/26/21 20:53 Blood Pressure 176/101 08/26/21 20:53 Pulse Oximetry 99 08/26/21 20:53 MDM - Extremity Injury (Upper) Medical Decision Making XR showing a triquetral fracture. 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 Patient will be placed in a volar splint and case management will have him follow-up with orthopedics. We also discussed if his hand surgeon in [place] is willing to see him without a new referral this could also be an option. Patient will be given a prescription for pain medications. We will go ahead and also place him on antibiotics given the overlying abrasions. Lab Data Radiology Impressions Hand X-Ray 08/26/21 20:59 IMPRESSION: 1. Positive for triquetrum fracture. 2. Possible scapholunate dissociation. Wrist X-Ray 08/26/21 20:59 IMPRESSION: 1. Triquetrum fracture suspected. 2. Cannot exclude scapholunate disassociation. Discharge Plan Discharge Patient Disposition: Home Clinical Impression: Fracture of triquetrum of left wrist Qualifiers: Encounter type: initial encounter Fracture type: closed Fracture alignment: nondisplaced Qualified Code(s): S62.115A - Nondisplaced fracture of triquetrum [cuneiform] bone, left wrist, initial encounter for closed fracture Condition: Stable Prescriptions: New hydrocodone-acetaminophen 5-325 mg tablet 1 tab PO Q6H PRN (Reason: pain) Qty: 14 0RF cephalexin 500 mg capsule 500 mg PO Q6H 7 Days Qty: 28 0RF No Action atenolol 25 mg tablet 25 mg PO BID 90 Days Qty: 180 1RF Discharge Orders: Discharge ED (Routine); Ordered 08/27/21 Ordered By: Muna Tamez Referrals: Nunu Arredondo, POTABLE WATER TREATMENT OPERATOR-C [Primary Care Provider] - Patient Instructions: Opioid Safety Activity Restrictions/Additional Instructions: You need to ice and elevate your hand to help with swelling. As we discussed case management should contact you shortly to set you up with our orthopedic team for further evaluation. You may also try to contact your hand surgeon that you saw last year for your previous hand injury. If they are able to see you within the next week you may follow-up with them. Monitor the minor abrasions that you have to make sure these are not becoming infected. Monitor for redness, swelling, drainage, red streaking up your arm and seek medical evaluation if these occur. Coding Level of Care Code ED Sales Office Coordinator for Reinaldo Fabian
[2021-08-27] MEDS: cephALEXin 500 mg Capsule PO (01:24)
[2021-08-27] MEDS: HYDROcodone-acetaminophen 5-325 mg Tablet 3 TAB PO (01:24)
[2021-08-27 01:27] VITALS: BP 169/91; PULSE 71; RESP 18; TEMP 36.7; O2SAT 98
--- NOTE | 2021-08-27 07:06 | DCPLANNER ---
Addendum entered by Earlene Gutiérrez 10/01/21 15:19: late entry - human resources benefits manager was told that this would need to be referred to a hand specialist, unable to reach patient to discuss. Original Note: human resources benefits manager had message to schedule a follow up appointment for patient with ortho. human resources benefits manager sent patients information to the front office staff at ortho. Patients information will be printed and reviewed. Clinic will call patient with appointment information.
== END 2021-08-27 01:29 | disposition home or self-care (01) ==
PROVIDERS: Emergency Provider Physician Assistant; PCP Nurse Practitioner
DX: S62.115A Nondisplaced fracture of triquetrum [cuneiform] bone, left wrist, initial encounter for closed fracture (principal); X58.XXXA Exposure to other specified factors, initial encounter
CPT/HCPCS: 73110; 73130; 99283

== ENCOUNTER 2022-03-10 09:27 | Emergency (ER) | payer SELFPAY ==
[2022-03-10 09:32] VITALS: BP 182/118; PULSE 84; RESP 18; TEMP 37; O2SAT 98
--- NOTE | 2022-03-10 09:55 | XRR_ITS ---
PROCEDURE INFORMATION: Exam: XR Left Ankle Exam date and time: 03/10/2022 10:03 AM Age: 36 years old Clinical indication: Pain; Ankle; Left; Patient HX: No trauma, just started hurting 6 months ago when walking; Additional info: Pain and swelling TECHNIQUE: Imaging protocol: Radiologic exam of the Left ankle. Views: 3 or more views. AP Oblique Lateral COMPARISON: No relevant prior studies available. FINDINGS: Bones/joints: There is normal alignment without fractures or dislocations. Small medial and lateral degenerative osteophytes are seen. The tibiotalar joint and talar dome are unremarkable. The subtalar joint is unremarkable. There is no ankle joint effusion. The mortise is normal. The distal tibia-fibular alignment is unremarkable. Medium-sized plantar calcaneal spur is seen. Soft tissues: Mild lateral ankle soft tissue prominence. There are no radiopaque foreign bodies. Notes: If there is further concern, recommend follow-up radiographs or MRI for complete assessment. XR/XR ankle LT min 3V* [id number] IMPRESSION: No fractures or dislocation of the left ankle. Degenerative changes, as noted above.
--- NOTE | 2022-03-10 10:48 | W.ED.EXTPRO ---
HPI - Extremity Problem General: Chief complaint: Extremity Injury, Lower Stated complaint: Left ankle in pain Time Seen by Provider: 03/10/22 09:35 History of Present Illness: 36 yo male patient presents to ER with chronic left ankle pain. Pt states he has had no injury or trauma but has been throbbing for about 5-6 months. Pt denies hx of dvt. Pt denies CP or SOB. Pt denies hx of gout. Associated symptoms: Deny chest pain, fever(s) or rash Review of Systems Const: Denies: fever(s), chills, body aches, change in appetite, change in weight, fatigue, malaise or diaphoresis Eyes: Denies: change in vision, blurry vision, blind spots, photophobia, eye discomfort, eye discharge, eye redness, floaters or seeing flashes ENMT: Denies: throat pain, uvular edema, enlarged tonsils, odynophagia, hoarseness, mouth pain, swelling of lips/tongue, oral sores, bleeding gums, dental pain, dry mouth, ear or mastoid pain, ear discharge, change in hearing, tinnitus, disequilibrium, nasal discharge, nasal congestion, post nasal drip or sinus pain Card: Denies: chest pain, palpitations, irregular heart rhythm, edema, swelling of feet/ankles, lightheadedness, syncope, pre-syncope, dyspnea on exertion, orthopnea, leg pain with exertion or acrocyanosis Resp: Denies: dyspnea, productive cough, non-productive cough, wheezing, stridor, pain on inspiration, change in phlegm color, hemoptysis or chest congestion GI: Denies: abdominal pain, nausea, vomiting, hematemesis, dysphagia, diarrhea, constipation, GI cramping, change in bowel habits or rectal pain : Denies: flank pain, dysuria, urinary frequency, urinary urgency, urinary hesitancy or hematuria Musc: Denies: neck pain, back pain, extremity swelling, joint pain, joint swelling, joint redness, joint warmth or deformity Skin/Breast: Denies: rash, pruritus, erythema, sores, new lesions, changes in skin color or dry skin Neuro: Denies: headache(s), numbness in extremities, weakness in extremities, sensory changes, lack of coordination, difficulty walking, frequent falls, dizziness, vertigo, confusion, behavioral changes, Slurred speech present, difficulty communicating thoughts or seizure-like activity Psych: Denies: anxiety, depression, suicidal ideation or homicidal ideation Endo: Denies: polyuria, polydipsia, tired all the time, cold intolerance, excessive sweating, flushing, hot flashes or heat intolerance Jimmy/Lymph: Denies: easy bruising, easy bleeding, petechiae, purpura, enlarged lymph nodes or tender lymph nodes All/Imm: Denies: urticaria, throat swelling, tongue swelling, facial swelling, acute wheezing or itchy eyes PFSH ED PFSH: Medical History Anxiety Essential hypertension Surgical History History of arthroscopy of left knee Family History Other Hypertension Stroke Social History Smoking and tobacco status: current every day smoker cigarettes Packs smoked per day: 1 Second hand smoke exposure: No Smoking risk assessment/counseling performed?: No Alcohol intake: never Desire information about alcohol rehabilitation?: No Counseling given: No Desire information about substance/drug rehabilitation?: No Counseling given: No Caregiver/support person: No Lives independently: Yes Household members: significant other Housing: House Marital status: Single Number of children: 2 service: No Current occupational status: employed 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 History of recent travel: Yes (ordnance truck 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 supervisor out of state drives) Out of state: Yes Out of country: No Current gender identity: Male Physical Exam Const: COMMON NORMALS: no acute distress, average body habitus, patient oriented x3, no limitations, healthy appearing, alert and well nourished HENMT: THROAT: no uvular edema Lymph: LYMPHATIC: no lymphadenopathy noted Resp: COMMON NORMALS: normal respiratory effort Cardio: COMMON NORMALS: regular rate and regular rhythm RATE: regular rate RHYTHM: regular rhythm Extremity: LEFT LOWER EXTREMITY: Yes ankle joint (Full ROM NVI distally tenderness to lateral aspect thee is no redness or wa) Neuro: COMMON NORMALS: patient oriented x3 SENSORIUM/ORIENTATION: Yes alert Course ED course: Patient is well appearing non toxic and in no acute distress. 36 yo male patient presents to ER with chronic left ankle pain. Pt states he has had no injury or trauma but has been throbbing for about 5-6 months. Pt denies hx of dvt. Pt denies CP or SOB. Pt denies hx of gout. Pt is NVI ditally. there is no redness or warmth noted. there is no calf tenderness or swelling. Xrays show degenerative changes but nothing acute. Will advise NSAIDS prn Vital Signs: Vital signs: Vital Signs Temperature 98.6 F 03/10/22 09:32 Pulse Rate 84 03/10/22 09:32 Respiratory Rate 18 03/10/22 09:32 Blood Pressure 182/118 03/10/22 09:32 Pulse Oximetry 98 03/10/22 09:32 MDM - Extremity (Nontraumatic) Medical Decision Making Patient is well appearing non toxic and in no acute distress. 36 yo male patient presents to ER with chronic left ankle pain. Pt states he has had no injury or trauma but has been throbbing for about 5-6 months. Pt denies hx of dvt. Pt denies CP or SOB. Pt denies hx of gout. Pt is NVI ditally. there is no redness or warmth noted. there is no calf tenderness or swelling. Xrays show degenerative changes but nothing acute. Will advise NSAIDS prn Differential Diagnosis Likely gout, cellulitis, lower extremity edema and deep vein thrombosis of lower extremity Lab Data Radiology Impressions Ankle X-Ray 03/10/22 09:55 IMPRESSION: No fractures or dislocation of the left ankle. Degenerative changes, as noted above. Discharge Plan Discharge Patient Disposition: Home Clinical Impression: Ankle pain Condition: Stable Prescriptions: New ibuprofen 800 mg tablet 800 mg PO TID PRN (Reason: pain) Qty: 30 0RF No Action atenolol 25 mg tablet 25 mg PO BID 90 Days Qty: 180 1RF hydrocodone-acetaminophen 5-325 mg tablet 1 tab PO Q6H PRN (Reason: pain) Qty: 14 0RF Discharge Orders: Discharge ED (Routine); Ordered 03/10/22 Ordered By: Anastasiia Silva Referrals: Nunu Arredondo FNP-C [Primary Care Provider] - Discharge Diet: Advance as tolerated Discharge Activity: Increase activity as tolerated Patient Instructions: Opioid Safety, Pain Management Activity Restrictions/Additional Instructions: Take medications as prescribed Perform Range of motion exercises Cedric wrap for comfort as needed Follow up with PCP for continued pain Coding Level of Care Code ED Director Of Epidemiology for Reinaldo Fabian
== END 2022-03-10 11:02 | disposition home or self-care (01) ==
PROVIDERS: Emergency Provider Registered Nurse; PCP Nurse Practitioner
DX: M25.572 Pain in left ankle and joints of left foot (principal); I10 Essential (primary) hypertension; F17.210 Nicotine dependence, cigarettes, uncomplicated
CPT/HCPCS: 73610; 99283

== ENCOUNTER → 2022-05-07 08:47 | Outpatient (BNVA) | payer OTHER, SELFPAY | PROVIDERS: PCP Nurse Practitioner; Visit Provider Nurse Practitioner Family | DX: J02.9 Acute pharyngitis, unspecified (principal); I10 Essential (primary) hypertension; J06.9 Acute upper respiratory infection, unspecified | CPT/HCPCS: 87071; 87880 ==

== ENCOUNTER → 2022-11-14 16:08 | Outpatient (BNVA) | payer OTHER, SELFPAY | PROVIDERS: PCP Nurse Practitioner; Visit Provider Nurse Practitioner Family | DX: I10 Essential (primary) hypertension (principal) | CPT/HCPCS: 80053; 80061; 83721; 84443; 85025 ==